=== PATIENT | female | born 1995 | race Caucasian/White ===

== ENCOUNTER 2017-07-01 11:01 | Emergency (ER) | payer SELFPAY ==
[2017-07-01 11:25] LABS: Bilirubin Negative (Negative); Blood, Urine Negative (Negative); Clarity Slightly Cloudy (Clear); Glucose, Urine (Dipstick) Negative (Negative); Leukocyte Trace (Negative); Nitrite Positive (Negative); Protein, Urine (Dipstick) Negative (Neg-Trace); Specific Gravity, Urine 1.025 (1.005-1.030); Urobilinogen 0.2 mg/dL (0.2-1.0)
[2017-07-01 11:27] LABS: Pregnancy Test - Urine (BHCG) Negative (Negative); Pregu Control Background? CLEAR/WHITE (CLR/WHITE); Pregu Control Bar Appear? YES (CONTROL BAR); Specific Gravity 1.025 (1.002-1.036)
[2017-07-01 11:32] LABS: RBC/HPF None Seen HPF (0-3)
[2017-07-01 11:33] LABS: Bacteria/HPF 3+ HPF (None Seen)
[2017-07-01] MEDS ORDERED: Sulfameth/Trimethoprim DS 800-160mg TAB ONE (11:39)
== END 2017-07-01 11:42 | disposition home or self-care (01) ==
LOC: BURERS 11:01
DX: N39.0 Urinary tract infection, site not specified (principal); F90.9 Attention-deficit hyperactivity disorder, unspecified type; J45.909 Unspecified asthma, uncomplicated; F17.210 Nicotine dependence, cigarettes, uncomplicated; F41.9 Anxiety disorder, unspecified
CPT/HCPCS: 81003; 81015; 81025; 87077; 87086; 87186; 99284

== ENCOUNTER 2017-07-02 16:46 | Emergency (ER) | payer OTHER, SELFPAY ==
[2017-07-02] MEDS ORDERED: Adacel (T-DAP) 0.5 ML VIAL ONE (17:05)
[2017-07-02] MEDS ORDERED: Ibuprofen 200 MG TAB ONE (17:19)
[2017-07-02] MEDS ORDERED: Bacitracin Zinc 1 Packet ONE (17:26)
== END 2017-07-02 17:25 | disposition home or self-care (01) ==
LOC: BURERS 16:46
DX: T23.221A Burn of second degree of single right finger (nail) except thumb, initial encounter (principal); F90.9 Attention-deficit hyperactivity disorder, unspecified type; J45.909 Unspecified asthma, uncomplicated; F41.9 Anxiety disorder, unspecified; F17.210 Nicotine dependence, cigarettes, uncomplicated; Z79.899 Other long term (current) drug therapy; X10.2XXA Contact with fats and cooking oils, initial encounter; Y92.511 Restaurant or cafe as the place of occurrence of the external cause; Y99.0 Civilian activity done for income or pay
CPT/HCPCS: 90471; 90715; G0390